=== PATIENT | male | born 1960 | race Caucasian/White ===

== ENCOUNTER 2018-09-17 09:06 | Observation (INO) ==
[2018-09-17] MEDS ORDERED: Isovue-370 500 ML BOTTLE IVP ONE (09:11)
[2018-09-17 09:55] LABS: Basophils % 0.3 %; Eosinophils # 0.1 K/mcL (0.0-0.6); Hematocrit 46.1 % (37.5-50.1); Hemoglobin 16.1 g/dL (12.9-16.9); Immature Granulocytes % 0.3 % (0-4); Lymphocytes # 2.4 K/mcL (0.6-4.6); Lymphocytes % 35.5 %; Mean Corpuscular HGB Conc 34.9 g/dL (31.6-35.5); Mean Corpuscular Hemoglobin 31.9 pg (28.0-33.3); Mean Corpuscular Volume 91.3 fL (83.0-100.0); Mean Platelet Volume 9.5 fL (9.4-12.4); Monocytes # 0.5 K/mcL (0.0-1.3); Monocytes % 7.2 %; Neutrophils # 3.8 K/mcL (1.6-8.9); Platelet Count 227 K/mcL (140-400); Red Blood Count 5.05 M/mcL (4.19-5.50); Red Cell Distribution Width 12.6 % (11.5-14.5); Segmented Neutrophils % 55.7 %; White Blood Count 6.8 K/mcL (4.3-11.1)
[2018-09-17 10:18] LABS: Alanine Aminotransferase 50 Units/L (7-52); Albumin 4.4 g/dL (3.5-5.7); Albumin/Globulin Ratio 1.5 (1.1-2.2); Alkaline Phosphatase 55 Units/L (34-104); Aspartate Amino Transferase 32 Units/L (13-39); BUN/Creatinine Ratio 10 (6-26); Bilirubin,Direct 0.1 mg/dL (0.0-0.2); Bilirubin,Indirect 0.5 mg/dL (0.0-1.2); Bilirubin,Total 0.6 mg/dL (0.3-1.0); Blood Urea Nitrogen 10 mg/dL (6-20); Calcium 9.4 mg/dL (8.6-10.3); Carbon Dioxide 25 mEq/L (23-29); Chloride 106 mEq/L (98-107); Glucose 108 mg/dL (70-105); Osmolality,Calculated 290 (280-300); Potassium 4.2 mEq/L (3.5-5.1); Sodium 140 mEq/L (136-145); Total Protein 7.4 g/dL (6.4-8.9); Troponin I < 0.03 ng/mL (< 0.04); eGFR For African Americans > 60 (> 60); eGFR For Non-African Americans > 60 (> 60)
[2018-09-17 10:37] LABS: Prothrombin Time 11.6 Seconds (9.4-12.1)
[2018-09-17 10:40] LABS: Activated Partial Thrombo Time 35.5 Seconds (26.0-36.0)
[2018-09-17 11:03] LABS: C-Reactive Protein < 5 mg/L (Less than 10)
[2018-09-17] MEDS ORDERED: Naloxone 0.4 MG/ML INJ IVP PRN (12:08)
[2018-09-17] MEDS ORDERED: Acetaminophen 325 MG TABLET PO PRN (12:08)
[2018-09-17] MEDS ORDERED: *HR* OxyCODONE Immed Rel 5 MG TABLET PO PRN (12:08)
[2018-09-17] MEDS ORDERED: Ondansetron 4 MG/2 ML VIAL IVP ONE (12:13)
[2018-09-17] MEDS ORDERED: Morphine Sulfate 2 MG/ML SYRINGE IVP ONE (12:14)
[2018-09-18 04:01] LABS: Basophils % 0.3 %; Eosinophils # 0.2 K/mcL (0.0-0.6); Eosinophils % 2.5 %; Hematocrit 47.2 % (37.5-50.1); Hemoglobin 16.3 g/dL (12.9-16.9); Immature Granulocytes % 0.3 % (0-4); Lymphocytes # 2.2 K/mcL (0.6-4.6); Lymphocytes % 35.9 %; Mean Corpuscular HGB Conc 34.5 g/dL (31.6-35.5); Mean Corpuscular Hemoglobin 32.6 pg (28.0-33.3); Mean Corpuscular Volume 94.4 fL (83.0-100.0); Mean Platelet Volume 9.6 fL (9.4-12.4); Monocytes # 0.5 K/mcL (0.0-1.3); Monocytes % 7.9 %; Neutrophils # 3.2 K/mcL (1.6-8.9); Platelet Count 222 K/mcL (140-400); Red Cell Distribution Width 12.7 % (11.5-14.5); Segmented Neutrophils % 53.1 %
[2018-09-18 04:16] LABS: Estimated Average Glucose 114 mg/dl
[2018-09-18 04:19] LABS: BUN/Creatinine Ratio 10 (6-26); Blood Urea Nitrogen 11 mg/dL (6-20); Calcium 9.5 mg/dL (8.6-10.3); Carbon Dioxide 28 mEq/L (23-29); Chloride 104 mEq/L (98-107); Glucose 106 mg/dL (70-105); Osmolality,Calculated 288 (280-300); Potassium 4.1 mEq/L (3.5-5.1); Sodium 139 mEq/L (136-145); eGFR For African Americans > 60 (> 60); eGFR For Non-African Americans > 60 (> 60)
[2018-09-18] MEDS ORDERED: amLODIPine 5 MG TABLET PO SCH (09:00)
[2018-09-18 11:52] VITALS: BP 120/83
== END 2018-09-18 16:03 | disposition home or self-care (01) ==
LOC: 3BNU 09:06 → EMEROOARM 09:06 → 3BNU 14:21
PROVIDERS: ADMIT Internal Medicine; ATTEND Internal Medicine